=== PATIENT | female | born 1985 | race Caucasian/White ===

== ENCOUNTER 2017-05-31 07:20 | Day surgery (SDC) | payer OTHER ==
[2017-05-31] MEDS ORDERED: Propofol 10 mg/ml Inj (20 ML) ONE (07:50)
[2017-05-31] MEDS ORDERED: cefOXitin IV 1 gm in Dextrose 0 GM/0 ML BAG IVPB ONE (08:24)
[2017-05-31] MEDS ORDERED: cefOXitin IV 1 gm in Dextrose 1 GM/50 ML BAG IVPB ONE (08:25)
[2017-05-31 10:11] VITALS: O2SAT 100
[2017-05-31 14:06] VITALS: BP 100/68; PULSE 62; RESP 18; TEMP 97
--- NOTE | 2017-05-31 18:47 | PCM.SURG1 ---
Surgeon's Initial Post Op Note - Surgeon's Notes Surgeon: dr calvillo [employer] Professor: none Type of Anesthesia: Spinal Anesthesia Administered By: dr minaya Pre-Operative Diagnosis: cervical incoimpetence at 14week Operative Findings: see the op report Post-Operative Diagnosis: same /fragilr cervix Operation Performed: cerclage procedure Specimen/Specimens Removed: none Estimated Blood Loss: EBL {In ML}: 20 Blood Products Given: N/A Drains Used: No Drains Post-Op Condition: Good Date of Surgery/Procedure: 05/31/17 Time of Surgery/Procedure: 08:40
--- NOTE | 2017-06-01 00:20 | OP ---
PROCEDURE DATE: 05/31/2017 PREOPERATIVE DIAGNOSIS: A 32-year-old 5, para 0 at 14 plus weeks with the cervical incompetence. POSTOPERATIVE DIAGNOSIS: A 32-year-old 5, para 0 at 14 plus weeks with the cervical incompetence. PROCEDURE: Vera cerclage procedure. ANESTHESIA: Spinal. ANESTHESIOLOGIST: Dr. Martin. COMPLICATIONS: None. ESTIMATED BLOOD LOSS: 20 mL. DESCRIPTION OF PROCEDURE: After informed consent was obtained, the patient was brought to the operating room and placed on the table where spinal anesthesia was given. Once the anesthesia was found to be adequate, she was prepped and draped in the normal sterile fashion. Ultrasound, baby heart was visualized. After that, was done, 30 to 40 mL of urine came out. After that, anterior lip of the cervix was grasped with ring forceps. The cervix was very fragile. As soon as I lift up with the ring forceps, it started oozing. The stitch was placed at 12 o'clock to 9, 9 to 6, 6 to 3 o'clock and then it was tied at 12 o'clock. The stitch was 2-0 silk. After that, a little bit pressure was placed and then Monsel's was applied for external hemostasis. It was not bleeding. Then after the procedure the sonogram was done again, it was not bleeding; 8 to 10 knots were placed. The patient tolerated the procedure well. Lap, sponge, and instrument counts were correct x2. The heartbeat was shown to the patient. The patient was told to be on bedrest for two weeks. No sex. Continue the progesterone suppository for tomorrow. Pain medication was given. Hai Carroll MD
== END 2017-05-31 14:21 | disposition home or self-care (01) ==
LOC: C.SDS 07:20
PROVIDERS: ATTEND Obstetrics & Gynecology
DX: O34.31 Maternal care for cervical incompetence, first trimester (principal); Z3A.14 14 weeks gestation of pregnancy
CPT/HCPCS: 59320; J0694; J2704; J3010

== ENCOUNTER 2017-07-25 09:45 | Emergency (ER) | payer OTHER ==
[2017-07-25 11:04] LABS: SQUAMOUS EPITHIAL 7 /hpf (0-5); URINE BACTERIA MOD (<OCC); URINE BILIRUBIN NEGATIVE (NEGATIVE); URINE BLOOD 1+ (NEGATIVE); URINE CLARITY Hazy (Clear); URINE COLOR Straw (YELLOW); URINE GLUCOSE (UA) 2+ mg/dL (Normal); URINE LEUKOCYTE ESTERASE 2+ Leu/uL (Negative); URINE PROTEIN NEGATIVE (NEGATIVE); URINE UROBILINOGEN NORMAL mg/dL (0.2-1.0)
[2017-07-25 16:15] VITALS: PULSE 103; RESP 22; TEMP 97.9; O2SAT 99
--- NOTE | 2017-07-26 01:58 | OBHP ---
Datetime: 07/25/2017 14:23 IP Adm Impression: , intrauterine IP Admit Plan: Discharge home Admit Comment, IP Provider: Patient seen at aproximately 1110 hours; received in LDR#1 32 y.o. , LMP 02/18/17, ESVIN 11/25/17, EGA 22w 3d referred by [facility] OB provider for monitoring and observation/evaluation due to c/o lower abdominal pressure, "feels like my bones are broken" and " period-like pains. Pain scale 6/10; has taken no pain meds. Pain is worsened when she gets up fro m the supine position she has been in for the past 4 months - patient on complete bedrest. (+) FM; d enies LOF, VB. Seen by [facility] OB earlier for routine visit. Per patient, a cervical exam was p erformed = closed, "but soft". Cerclage in situ. care: Dr. Carroll. Poor ob history: curently on bed rest; S/P cerclage 05/2017 at 14 weeks P Ob: 1) 11/2016, del, 24 weeks, twins, (patient did not want to give detail s of labor), about 800 grams each, in [place] - this was an IVF . 2) Spont Ab x 3: first 2, approx 5 weeks; third at 12 weeks. No D_C. Per patient, work up after these losses was negative. 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 Denies STIs or abnormal Pap; (+) fibroids, diagnosed 2016 PMH: denies PSH: cerclage 05/2017 NKDA Meds: PNV p.o. QD. 2) vaginal progesterone cream QHS Soc Hx: denies tobacco, illicit drug or EtOH use. Mother alive 55 y.o. Father alive 53 y.o. - both , no med issues P.E.: as above. WD in NAD; appears uncomfortable and mildly anxious. Awake, alert, oriented to silvia e, person and place. Accompanied by . Assessment: 32 y.o. P0130, 22w 3d, - poor Ob hsitory; prev PT del. S/P serclage. FHR detected - ap propriate for GA. Reviewed with patient and , her immobility may the contributing factor to h er overall muscular aches. Educated patient on performig dorsiflexion exercises while supine at least hourly. counseled on passive PT manuevers BID. Patient otherwise clinically stable. Plan: 1) send U/A 2) IVFs - as per Dr. Carroll. Note: upon starting interview, patient had begun to receive IVFs and reported feeling better. Addendum: U/A: leuk 3+; S.G. 1.002. All else, wnl/negative - this was discussed with Dr. Carroll. Patient to be discharged home on p.o. antibiotics Assessment: early UTI Plan: 1) Rx: macroBID 100 mg 1 tab p.o. BID x 10 days 2) Keep all scheduled appointments 3) Continue medications as prescribed - as per Dr Carroll Pelvic Type - PN: Not Done Extremities - PN: Normal Abdomen - PN: Abnormal Back - PN: Abnormal Breast - PN: Normal Lungs - PN: Normal Heart - PN: Normal Thyroid - PN: Not Done Neurologic - PN: Normal HEENT - PN: Normal General - PN: Normal FHR - Baseline A Provider: 140 Contraction Comments Provider: none Comments, ACOG Physical Exam: Abdomen: Soft. Gravid. Minimal tenderness elicited Back: generalized low back pain, Left> right Perineum: no bleeding or discharge noted All other systems reviewed - see HPI Gestation - Est Wks by US: 22w 3d EGA AdmitDate IP: 22.3 Vital Signs Provider: Reviewed IP Chief Complaint: Maternal discomfort Dilatation, Provider: deferred Genitourinary Exam: Not Done DTRs - PN: Not Done
== END 2017-07-25 12:06 | disposition home or self-care (01) ==
LOC: C.EROB 09:45
DX: O23.42 Unspecified infection of urinary tract in pregnancy, second trimester (principal); Z3A.22 22 weeks gestation of pregnancy

== ENCOUNTER 2017-11-01 08:00 | Inpatient (IN) | payer OTHER ==
[2017-11-01 10:14] VITALS: BMI 27.4
[2017-11-01] MEDS ORDERED: Betamethasone Soluspan 30 mg/5mL Inj Susp IM STA (10:14)
--- NOTE | 2017-11-01 10:16 | OBHP ---
Datetime: 11/01/2017 10:10 IP Adm Impression: , intrauterine IP Chief Complaint Other: cerclage removal Admit Comment, IP Provider: at 36.4weeks her for cerclage removal.c/o ctxs irrg , no vb, of+fm. obhx 3 x sab, 25 x twin loss pmh de med pnv all nkda psh de soch de sse cerclage rooved after visualiing with speculum and holding wth ring foecrp. _ plan start ivf betamethasone fs cont observation Pelvic Type - PN: Adequate Extremities - PN: Normal Abdomen - PN: Normal Back - PN: Normal Breast - PN: Normal Lungs - PN: Normal Heart - PN: Normal Thyroid - PN: Normal Neurologic - PN: Normal HEENT - PN: Normal General - PN: Normal FHR - Baseline A Provider: 140 Contraction Comments Provider: q1-4 EGA AdmitDate IP: 40.0 Vital Signs Provider: Reviewed; Within Normal Limits IP Chief Complaint: Uterine contractions NICHD Variability Prov Fetus A: Moderate 6-25bpm NICHD Accel Fetus A IP Provider: 15X15 FHR Category Provider Fetus A: Category I Dilatation, Provider: 2 Effacement, Provider: 60 Station, Provider: -2 Genitourinary Exam: Normal DTRs - PN: Normal
[2017-11-01] MEDS ORDERED: Penicillin G 5 Million Unit Vial IVPB ONE ×2 (12:24→14:35)
[2017-11-01 13:51] LABS: EOS % 0.3 % (0.0-4.0); HEMOGLOBIN 11.5 g/dL (11.0-16.0); MONO # 0.2 K/uL (0.0-0.8)
[2017-11-01 14:00] LABS: BASO # 0.1 K/uL (0.0-0.2); BASO % 0.5 % (0.0-2.0); LYMPH # 0.7 K/uL (1.0-4.3); LYMPH % 6.4 % (20.0-40.0); MEAN CORPUSCULAR HEMOGLOBIN 28.3 pg (27.0-31.0); MEAN CORPUSCULAR HGB CONC 34.1 g/dL (33.0-37.0); MEAN PLATELET VOLUME 11.8 fL (7.2-11.7); NEUT # 10.5 K/uL (1.8-7.0); NEUT % 90.8 % (50.0-75.0); RBC 4.07 Mil/uL (3.80-5.20); WHITE BLOOD COUNT 11.5 K/uL (4.8-10.8)
[2017-11-01 14:01] LABS: PLATELET COUNT 114 K/uL (130-400)
[2017-11-01 14:33] LABS: BANDS 2 % (0-2); LARGE PLATELETS PRESENT; LYMPHOCYTE 6 % (20-40); MONOCYTE 1 % (0-10); NEUTROPHIL 91 % (50-75); PLATELET ESTIMATE SLIGHTLY DECREASED (NORMAL); TOTAL CELLS COUNTED 100
--- NOTE | 2017-11-01 15:10 | OBPN ---
Datetime: 11/01/2017 15:07 IP Procedures: Sterile Vag Exam FHR - Baseline A Provider: 130 IP Progress Note Comment: pt was examined at bed side ve 5/80/-2 request pain meds plan anthesia alled cont nai Vital Signs Provider: Reviewed; Within Normal Limits NICHD Accel Fetus A IP Provider: 15X15 FHR Category Provider Fetus A: Category I NICHD Variability Prov Fetus A: Moderate 6-25bpm Dilatation, Provider: 5 Effacement, Provider: 80 Station, Provider: -2 Datetime: 11/01/2017 10:10 Contraction Comments Provider: q1-4 Datetime: 07/25/2017 14:23 Gestation - Est Wks by US: 22w 3d
[2017-11-01] MEDS: Lactated Ringer's 1,000 ML IV SCH (15:12)
[2017-11-01] MEDS ORDERED: Bupivacaine HCl/FentaNYL Cit 100 ML EPI ONE (15:44)
--- NOTE | 2017-11-01 17:41 | OBPN ---
Datetime: 11/01/2017 17:39 IP Progress Impression: Normal progression of labor IP Procedures: Sterile Vag Exam IP Progress Plan: Continue present management FHR - Baseline A Provider: 120 IP Progress Note Comment: pt was examined at bed side ve 8/100/_1 cont pen g fs start d5lr aticipate delivery Vital Signs Provider: Reviewed; Within Normal Limits NICHD Accel Fetus A IP Provider: 15X15 FHR Category Provider Fetus A: Category I NICHD Variability Prov Fetus A: Moderate 6-25bpm Dilatation, Provider: 8 Effacement, Provider: 100 Station, Provider: _1
--- NOTE | 2017-11-01 17:41 | OBADHP ---
Datetime: 11/01/2017 17:39 FHR - Baseline A Provider: 120 Vital Signs Provider: Reviewed; Within Normal Limits NICHD Variability Prov Fetus A: Moderate 6-25bpm NICHD Accel Fetus A IP Provider: 15X15 FHR Category Provider Fetus A: Category I Dilatation, Provider: 8 Effacement, Provider: 100 Station, Provider: _1 Datetime: 11/01/2017 10:10 IP Chief Complaint Other: cerclage removal Admit Comment, IP Provider: at 36.4weeks her for cerclage removal.c/o ctxs irrg , no vb, of+fm. obhx 3 x sab, 25 x twin loss pmh de med pnv all nkda psh de soch de sse cerclage rooved after visualiing with speculum and holding wth ring foecrp. ve /-2 plan start ivf betamethasone fs cont observation after 2 hr we rexamined . ve /-2 plan to admit to l_d nai npo blood work pain a anticipate Pelvic Type - PN: Adequate Extremities - PN: Normal Abdomen - PN: Normal Back - PN: Normal Breast - PN: Normal Lungs - PN: Normal Heart - PN: Normal Thyroid - PN: Normal Neurologic - PN: Normal HEENT - PN: Normal General - PN: Normal Contraction Comments Provider: q1-4 IP Hx Assessment: The History has been Reviewed and is Current IP Chief Complaint: Uterine contractions Genitourinary Exam: Normal DTRs - PN: Normal EGA AdmitDate IP: 36.4 IP Adm Impression: , intrauterine IP Admit Plan: Admit to unit; Initiate labor protocol Datetime: 07/25/2017 14:23 Comments, ACOG Physical Exam: Abdomen: Soft. Gravid. Minimal tenderness elicited Back: generalized low back pain, Left> right Perineum: no bleeding or discharge noted All other systems reviewed - see HPI Gestation - Est Wks by US: 22w 3d
[2017-11-01] MEDS ORDERED: Oxycodone/Acetaminophen 5/325 mg Tab PO PRN ×2 (17:42)
[2017-11-01] MEDS ORDERED: Lidocaine 2% MPF (5 ml) Inj ONE (18:24)
[2017-11-01] MEDS ORDERED: Oxycodone/Acetaminophen 5/325 mg Tab ONE ×2 (19:55→20:05)
[2017-11-01] MEDS: Benzocaine/Menthol 20%-0.5% Topical Spray (60 ml) TOP PRN ×2 (22:55→22:57)
[2017-11-02] MEDS: Lactated Ringer's 1,000 ML IV SCH (04:56)
--- NOTE | 2017-11-02 06:30 | OBPPN ---
Datetime: 11/02/2017 06:26 PP Pain Prov: Within normal limits PP Nausea Prov: Denies PP Flatus Prov: Yes PP Impression Prov: Normal progression PP Plan Prov: Continue present management PP Progress Note Prov: pt was seen at bed side, c/o difficultyu walking and walkingpain undeer contr ol,no n/v, tolteraing deir,voiding,min lochia ppd#1 s/p cbc ref physical therapy reg deit cont pp care cont pain manage Vital Signs Provider PP: Reviewed; Within Normal Limits
[2017-11-02 08:25] LABS: BASO # 0.1 K/uL (0.0-0.2); BASO % 0.5 % (0.0-2.0); EOS % 0.1 % (0.0-4.0); HEMOGLOBIN 10.3 g/dL (11.0-16.0); LYMPH # 1.6 K/uL (1.0-4.3); LYMPH % 11.6 % (20.0-40.0); MEAN CELL VOLUME 83.4 fL (81.0-99.0); MEAN CORPUSCULAR HEMOGLOBIN 27.8 pg (27.0-31.0); MEAN CORPUSCULAR HGB CONC 33.3 g/dL (33.0-37.0); MEAN PLATELET VOLUME 12.6 fL (7.2-11.7); MONO # 1.1 K/uL (0.0-0.8); MONO % 7.5 % (0.0-10.0); NEUT # 11.3 K/uL (1.8-7.0); NEUT % 80.3 % (50.0-75.0); RBC 3.7 Mil/uL (3.80-5.20); RED CELL DISTRIBUTION WIDTH 11.8 % (11.5-14.5)
[2017-11-02] MEDS: Benzocaine/Menthol 20%-0.5% Topical Spray (60 ml) TOP PRN (09:19)
[2017-11-04] MEDS: Benzocaine/Menthol 20%-0.5% Topical Spray (60 ml) TOP PRN (12:07)
[2017-11-04 16:18] VITALS: O2SAT 98
[2017-11-05] MEDS: Benzocaine/Menthol 20%-0.5% Topical Spray (60 ml) TOP PRN (09:17)
[2017-11-05 18:43] VITALS: BP 110/70; PULSE 93; RESP 18; TEMP 98.1
== END 2017-11-05 14:43 | disposition home or self-care (01) | DRG 468 ==
LOC: C.EROB 08:00 → C.4D 12:24 → C.4M 21:30
PROVIDERS: ADMIT Obstetrics & Gynecology; ATTEND Obstetrics & Gynecology
PROC: 10D07Z8 Extraction of Products of Conception, Other, Via Natural or Artificial Opening (ICD-10-PCS; principal; 2017-11-01)
PROC: 0UCC7ZZ Extirpation of Matter from Cervix, Via Natural or Artificial Opening (ICD-10-PCS; 2017-11-01)
DX: O60.14X0 Preterm labor third trimester with preterm delivery third trimester, not applicable or unspecified (principal); O34.33 Maternal care for cervical incompetence, third trimester; Z3A.36 36 weeks gestation of pregnancy; Z37.0 Single live birth